=== PATIENT | female | born 2000 | race Caucasian/White ===

== ENCOUNTER 2021-01-14 03:24 | Emergency (ER) | payer OTHER ==
[2021-01-14 03:57] LABS: HEMOGLOBIN 13.8 gm/dl (12.3-15.3); RED BLOOD COUNT 4.7 M/UL (4.00-5.10); WHITE BLOOD COUNT 7.5 K/UL (4.5-11.0)
[2021-01-14 04:16] LABS: BUN/CREATININE RATIO 15 (0-10)
[2021-01-14] MEDS ORDERED: MACROBID 100 M100 M1 PO (04:59)
== END 2021-01-14 06:30 | disposition home or self-care (01) ==
LOC: ER1 03:24
PROVIDERS: Physician Assistant
DX: N39.0 Urinary tract infection, site not specified (principal); Z88.0 Allergy status to penicillin; F17.210 Nicotine dependence, cigarettes, uncomplicated
CPT/HCPCS: 80053; 81001; 83605; 83690; 84702; 85025; 87086; 99284; Q9967